=== PATIENT | female | born 1930 ===

== ENCOUNTER → 2020-08-04 | Outpatient (CLI) | payer MEDICARE ==
[2020-08-04 10:20] LABS: HEMOGLOBIN 13.8 g/dL (12.0-15.5); RED BLOOD COUNT 4.89 x10^6/uL (3.50-5.40); RED CELL DISTRIBUTION WIDTH 15.8 % (11.5-14.5)
[2020-08-04 10:28] LABS: ALBUMIN 3.5 g/dL (3.4-5.0); CALCIUM 8.8 mg/dL (8.5-10.1); CREATININE 0.9 mg/dL (0.6-1.0); GFR 59.1; POTASSIUM 3.4 mmol/L (3.5-5.1); TOTAL BILIRUBIN 0.6 mg/dL (0.2-1.0); TOTAL PROTEIN 7.1 g/dL (6.4-8.2)
== END ==
LOC: LAB 10:03
PROVIDERS: ATTEND Family Medicine
DX: I25.10 Atherosclerotic heart disease of native coronary artery without angina pectoris (principal)
CPT/HCPCS: 36415; 80053; 80061; 85027